=== PATIENT | male | born 1955 | race Caucasian/White ===

== ENCOUNTER → 2017-02-01 | Outpatient (CLI) | payer BC ==
[~2017-02-01] MED LIST: ASP325T; CATHETER FLUSH 10 ML SYR IV PRN; CLOP75TA69 PO; CLPD75T; IOHEXOL 350 MG/ML 150 ML (OMNIPAQUE 350) VIAL IV ONE; METO-351 PO; MTP25TSR; NF-ESOM40C PO; NS 100 ML (IVPB) BAG IV ONE; NTR.4SL; OLME20TA22 PO; OLME20TA5; PANT40TA2 PO; REGADENOSON 0.4 MG/5 ML SYR (LEXISCAN) IV ONE; SIMV40TA2; SIMV40TA4 PO; TRIA1CAP4 PO
[2017-02-01 08:34] LABS: BASOPHILS % (AUTO) 1 % (0-10); EOSINOPHILS # (AUTO) 0.1 10^3/uL (0.0-0.3); EOSINOPHILS % (AUTO) 1 % (0-10); LYMPHOCYTES # (AUTO) 1.4 X 10^3 (1.0-4.0); LYMPHOCYTES % (AUTO) 25 % (12-44); MEAN CORPUSCULAR HEMOGLOBIN 31 PG (25-34); MEAN CORPUSCULAR HGB CONC 35 G/DL (32-36); MEAN CORPUSCULAR VOLUME 88 FL (80-99); MEAN PLATELET VOLUME 11.5 FL (7.4-10.4); MONOCYTES # (AUTO) 0.5 X 10^3 (0.0-1.0); MONOCYTES % (AUTO) 9 % (0-12); NEUTROPHILS # (AUTO) 3.7 X 10^3 (1.8-7.8); NEUTROPHILS % (AUTO) 65 % (42-75); PLATELET COUNT 170 10^3/uL (130-400); RED BLOOD COUNT 4.38 10^6/uL (4.35-5.85); RED CELL DISTRIBUTION WIDTH 13.5 % (10.0-14.5); WHITE BLOOD COUNT 5.7 10^3/uL (4.3-11.0)
[2017-02-01 08:51] LABS: ALANINE AMINOTRANSFERASE 32 U/L (0-55); ALBUMIN 4.1 GM/DL (3.2-4.5); ANION GAP 11 MMOL/L (5-14); ASPARTATE AMINO TRANSFERASE 27 U/L (5-34); BILIRUBIN,TOTAL 0.8 MG/DL (0.1-1.0); BLOOD UREA NITROGEN 16 MG/DL (7-18); BUN/CREATININE RATIO 17; CALCIUM 9.4 MG/DL (8.5-10.1); CARBON DIOXIDE 23 MMOL/L (21-32); CHLORIDE 109 MMOL/L (98-107); CHOLESTEROL 153 MG/DL (< 200); CREATININE SERUM 0.95 MG/DL (0.60-1.30); DIRECT LDL 87 MG/DL (1-129); GFR ESTIMATED > 60; GLUCOSE 95 MG/DL (70-105); MAGNESIUM 2.1 MG/DL (1.8-2.4); POTASSIUM 4.4 MMOL/L (3.6-5.0); SODIUM 143 MMOL/L (135-145); TOTAL PROTEIN 7.4 GM/DL (6.4-8.2); TRIGLYCERIDES 63 MG/DL (<150); VLDL CHOLESTEROL 13 MG/DL (5-40)
[2017-02-01 09:10] LABS: THYROID STIMULATING HORMONE 0.94 UIU/ML (0.35-4.94)
[2017-02-01 09:23] VITALS: BP 139/89
--- NOTE | 2017-02-01 17:53 | Diagnostic Imaging Report ---
PROCEDURE: CT angiography of the chest with contrast. TECHNIQUE: Multiple contiguous axial images were obtained through the chest after uneventful bolus administration of intravenous contrast. Reconstructed CTA MIP acquisitions were also performed. INDICATION: Followup thoracic aortic aneurysm. COMPARISON: 07/11/2015. FINDINGS: The thoracic aortic aneurysm in the ascending segment is stable measuring 4.5 cm without change from 07/11/2015. This is measured on the coronal images perpendicular to the long axis of the mid ascending aorta. The aortic root is 4.3 cm in diameter, near the upper limits of normal. The aortic arch is mildly ectatic proximally, and the descending aorta is normal in size. The pulmonary arteries demonstrate no definite abnormality. The heart size is normal. There is suggestion of a stent in the proximal LAD. There is no mediastinal mass or lymphadenopathy. No hilar significantly enlarged lymph nodes are seen. No axillary lymphadenopathy is identified. The lungs demonstrate minimal dependent atelectatic change. No significant consolidation or mass. The sections of the upper abdomen demonstrate no definite abnormality. The osseous structures demonstrate bridging syndesmophytes in the mid thoracic spine. IMPRESSION: Stable ascending aortic aneurysm measuring at the mid ascending aorta 4.5 cm in caliber. Dictated by: Dictated on workstation # [id number]
--- NOTE | 2017-02-01 22:42 | STRESS TEST ---
DATE OF SERVICE: 02/01/2017 RESTING AND POST REGADENOSON TECHNETIUM 99M TETROFOSMIN SPECT CT IMAGING ORDERING PHYSICIAN: Dr. Mata. PRIMARY CARE PHYSICIAN: Dr. Aaron. CLINICAL DIAGNOSES: Coronary artery disease, hypertension, hyperlipidemia. Baseline images were carried out after injection of 10.09 mCi of technetium-99m tetrofosmin for stress imaging. This was followed by 0.4 mg of adenosine and 30 mCi of technetium-99m tetrofosmin for stress imaging. The electrocardiogram showed sinus rhythm at baseline and did not change significantly with regadenoson infusion. The patient tolerated the procedure well. Review of images at rest and following stress does not indicate any distinct perfusion defects consistent with significant myocardial ischemia or infarction. Gated images show normal global left ventricular systolic function and normal regional wall motion. Left ventricular ejection fraction is calculated to be 48%, but subjectively appears to be somewhat higher than that. Left ventricular end-diastolic volume is 110 mL. TID is absent (1.08). CONCLUSIONS. 1. No evidence of any significant myocardial ischemia or infarction on this study. 2. Normal regional wall motion. 3. Normal global left ventricular systolic function with a calculated ejection fraction of 48% (subjectively somewhat higher than that). Job ID: [id number] DocumentID: [id number] Dictated Date: 02/01/2017 13:03:14 Flight Engineer Helicopter Date: 02/01/2017 13:31:28 Dictated By: LOUISE MATA MD, MA, FACP, FACC,
== END ==
LOC: CARD 07:12
PROVIDERS: ATTEND Internal Medicine Cardiovascular Disease
DX: I71.6 Thoracoabdominal aortic aneurysm, without rupture (principal); I25.10 Atherosclerotic heart disease of native coronary artery without angina pectoris; I10 Essential (primary) hypertension; E78.4 Other hyperlipidemia
CPT/HCPCS: 36415; 71275; 78452; 80053; 80061; 83735; 84443; 85025; 93017

== ENCOUNTER → 2017-03-01 | Outpatient (CLI) | payer BC ==
[~2017-03-01] MED LIST changes: -CATHETER FLUSH 10 ML SYR IV PRN; -IOHEXOL 350 MG/ML 150 ML (OMNIPAQUE 350) VIAL IV ONE; -NS 100 ML (IVPB) BAG IV ONE; -REGADENOSON 0.4 MG/5 ML SYR (LEXISCAN) IV ONE
== END ==
LOC: RAD 12:35
PROVIDERS: ATTEND Internal Medicine Cardiovascular Disease
DX: I25.10 Atherosclerotic heart disease of native coronary artery without angina pectoris (principal); I71.6 Thoracoabdominal aortic aneurysm, without rupture; E78.4 Other hyperlipidemia; I10 Essential (primary) hypertension
CPT/HCPCS: 93923

== ENCOUNTER → 2018-09-12 | Outpatient (CLI) | payer BC ==
[~2018-09-12] MED LIST changes: +HOLD METFORMIN - RECEIVED CONTRAST 20 ML VIAL IV SCH; +IOHEXOL 350 MG/ML 100 ML (OMNIPAQUE 350) VIAL IV ONE; +NS 100 ML (IVPB) BAG IV ONE; +OLME20TA21 PO; -OLME20TA22 PO
[2018-09-12 12:53] LABS: CALCIUM 9.5 MG/DL (8.5-10.1); CREATININE SERUM 1.25 MG/DL (0.60-1.30); POTASSIUM 3.9 MMOL/L (3.6-5.0)
--- NOTE | 2018-09-12 14:13 | Diagnostic Imaging Report ---
PROCEDURE: CT angiography of the chest with contrast. TECHNIQUE: Multiple contiguous axial images were obtained through the chest after uneventful bolus administration of intravenous contrast. 2D reconstructed CTA MIP acquisitions were also performed. Auto Exposure Controls were utilized during the CT exam to meet ALARA standards for radiation dose reduction. INDICATION: Aortic root enlargement. COMPARISON: Comparison is made with prior examination 02/01/2017. FINDINGS: The ascending aorta measures 4.8 cm. There is no evidence of dissection. There are no filling defects within the pulmonary artery to suggest pulmonary embolism. There is extensive coronary artery calcification. There is no pathologically enlarged adenopathy in the chest. There is no pleural or pericardial fluid. There is no pneumothorax. There are no discrete pulmonary nodules, masses, or infiltrates. The visualized intra-abdominal structures are unremarkable. There is moderate thoracic spondylosis. IMPRESSION: The ascending aorta now measures 4.8 cm AP compared to previous measurement of 4.5 cm. Extensive coronary artery calcification. Otherwise, unremarkable CTA chest. Dictated by: Dictated on workstation # [id number]
== END ==
LOC: RAD 12:19
PROVIDERS: ATTEND Nurse Practitioner Family
DX: I25.10 Atherosclerotic heart disease of native coronary artery without angina pectoris (principal); I77.89 Other specified disorders of arteries and arterioles
CPT/HCPCS: 36415; 71275; 80048

== ENCOUNTER → 2019-05-14 | Outpatient (CLI) | payer BC ==
[~2019-05-14] MED LIST changes: +CATHETER FLUSH 10 ML SYR IV PRN; -HOLD METFORMIN - RECEIVED CONTRAST 20 ML VIAL IV SCH; -IOHEXOL 350 MG/ML 100 ML (OMNIPAQUE 350) VIAL IV ONE; -NS 100 ML (IVPB) BAG IV ONE; +SIMV40TA25 PO; -SIMV40TA4 PO
--- NOTE | 2019-05-14 17:59 | Diagnostic Imaging Report ---
Hepatobiliary scan with ejection fraction INDICATION: Abdominal pain This study was performed following administration of 5.42 mCi of Choletec and 8 ounces of Ensure for the ejection fraction calculation. There are no prior nuclear medicine hepatobiliary scans available for comparison. There are no previous ultrasound examinations either. The CTA chest exam of 09/12/2018 failed to show any abnormality of the gallbladder. On this study, there is uptake of the radiotracer by the gallbladder for 30 minutes. This would weigh against the diagnosis of acute cholecystitis. There is also extension of the radiotracer into the small bowel indicating that the common bile duct is not obstructed. The ejection fraction however is only 11% (normal greater than 35%). The reason for the diminished ejection fraction is not certain. The possibility of biliary dyskinesia should be considered. IMPRESSION: 1. There is no evidence for acute cholecystitis or for obstruction of the common bile duct. 2. The ejection fraction is only 11% however and below normal limits. Dictated by: Dictated on workstation # [id number]
== END ==
LOC: CARD 10:26
PROVIDERS: ATTEND Registered Nurse
DX: E80.6 Other disorders of bilirubin metabolism (principal); R10.13 Epigastric pain; R11.2 Nausea with vomiting, unspecified
CPT/HCPCS: 78227

== ENCOUNTER → 2019-05-18 | Outpatient (CLI) | payer BC ==
[~2019-05-18] MED LIST changes: -CATHETER FLUSH 10 ML SYR IV PRN; +HOLD METFORMIN - RECEIVED CONTRAST 20 ML VIAL IV SCH; +IOHEXOL 350 MG/ML 100 ML (OMNIPAQUE 350) VIAL IV ONE; +NS 100 ML (IVPB) BAG IV ONE
[2019-05-18 08:24] LABS: BUN/CREATININE RATIO 12; CREATININE SERUM 1.14 MG/DL (0.60-1.30); GFR ESTIMATED > 60
--- NOTE | 2019-05-18 09:08 | Diagnostic Imaging Report ---
Clinical indication: Patient with syncope and coronary artery disease. Exam: Axial CT scan of the brain without and with 80 cc of Omnipaque 350 IV contrast with coronal and sagittal reformatted images. Auto Exposure Controls were utilized during the CT exam to meet ALARA standards for radiation dose reduction. Comparison: None. Findings: There is no evidence of acute cerebral infarct, intracranial hemorrhage, or gross mass effect. There is no abnormal IV contrast enhancement. The brain parenchymal volume appears appropriate for patient's age. There are subtle focal areas of low attenuation white matter changes involving both cerebral hemispheres, likely representing chronic small vessel ischemic disease. There is normal villa-white matter distinction. There is no significant midline shift or herniation. The [place] vascular structures show no gross abnormality as visualized. The pituitary gland, sella, and suprasellar regions are unremarkable as visualized. There is no evidence of hydrocephalus. The basal cisterns are unremarkable. The skull, extracranial soft tissue, and orbits are unremarkable. The paranasal sinuses are unremarkable. Temporal bones show no significant abnormality. Impression: Unremarkable CT scan of the brain for age. Dictated by: Dictated on workstation # [id number]
== END ==
LOC: CARD 07:55
PROVIDERS: ATTEND Internal Medicine Cardiovascular Disease
DX: I25.10 Atherosclerotic heart disease of native coronary artery without angina pectoris (principal); I65.23 Occlusion and stenosis of bilateral carotid arteries; I10 Essential (primary) hypertension; E78.5 Hyperlipidemia, unspecified
CPT/HCPCS: 36415; 70470; 82565; 84520; 93225; 93226

== ENCOUNTER → 2019-05-22 | Outpatient (CLI) | payer BC ==
[~2019-05-22] VITALS: Ht 187 cm; Wt 112.0 kg
[~2019-05-22] MED LIST changes: -HOLD METFORMIN - RECEIVED CONTRAST 20 ML VIAL IV SCH; -IOHEXOL 350 MG/ML 100 ML (OMNIPAQUE 350) VIAL IV ONE; -NS 100 ML (IVPB) BAG IV ONE; +REGADENOSON 0.4 MG/5 ML SYR (LEXISCAN) IV ONE
[2019-05-22] MEDS: CATHETER FLUSH 10 ML SYR IV PRN ×2 (07:12→09:15)
[2019-05-22 09:14] VITALS: BP 112/68
--- NOTE | 2019-05-22 18:34 | STRESS TEST ---
DATE OF SERVICE: 05/22/2019 RESTING AND POST REGADENOSON TECHNETIUM-99M TETROFOSMIN SPECT CT IMAGING ORDERING PHYSICIAN: BENI Bautista CLINICAL DIAGNOSES: Coronary artery disease, hypertension, hyperlipidemia. Baseline images were carried out after injection of 10.95 mCi of technetium-99m Tetrofosmin. This was followed by 0.4 mg regadenoson and 27.1 mCi of technetium-99m Tetrofosmin for stress imaging. The electrocardiogram showed sinus rhythm at baseline. It did not change significantly with regadenoson infusion. Review of images at rest and following stress does not indicate any significant perfusion defects consistent with myocardial ischemia or infarction. Gated images show normal global left ventricular systolic function with normal regional wall motion. Left ventricular ejection fraction is calculated to be 60%. Left ventricular end diastolic volume is 110 mL. TID is absent (0.89). CONCLUSIONS: 1. No evidence of any significant myocardial ischemia or infarction on this study. 2. Normal regional wall motion. 3. Normal global left ventricular systolic function with a calculated ejection fraction of 60%. Job ID: [id number] DocumentID: [id number] Dictated Date: 05/22/2019 16:18:59 Special Agent In Charge Date: 05/22/2019 18:33:55 Dictated By: LOUISE STRINGER MD, MA, FACP, FACC,
== END ==
LOC: CARD 06:39
PROVIDERS: ATTEND Nurse Practitioner Family
DX: I25.10 Atherosclerotic heart disease of native coronary artery without angina pectoris (principal); I77.89 Other specified disorders of arteries and arterioles; E78.5 Hyperlipidemia, unspecified; I10 Essential (primary) hypertension; R55 Syncope and collapse
CPT/HCPCS: 78452; 93017

== ENCOUNTER → 2020-02-28 | Outpatient (CLI) | payer BC ==
[~2020-02-28] MED LIST changes: +CATHETER FLUSH 10 ML SYR IV PRN; +HOLD METFORMIN - RECEIVED CONTRAST 20 ML VIAL IV SCH; +IOHEXOL 350 MG/ML 100 ML (OMNIPAQUE 350) VIAL IV ONE; +NS 100 ML (IVPB) BAG IV ONE; -REGADENOSON 0.4 MG/5 ML SYR (LEXISCAN) IV ONE
[2020-02-28 08:29] LABS: BUN/CREATININE RATIO 19; CREATININE SERUM 1.17 MG/DL (0.60-1.30); GFR ESTIMATED > 60
--- NOTE | 2020-02-28 09:49 | Diagnostic Imaging Report ---
PROCEDURE: CT angiography of the chest with contrast. TECHNIQUE: Multiple contiguous axial images were obtained through the chest after uneventful bolus administration of intravenous contrast. 3D reconstructed CTA MIP acquisitions were also performed. Auto Exposure Controls were utilized during the CT exam to meet ALARA standards for radiation dose reduction. INDICATION: Thoracic aortic aneurysm. Correlation is made with prior CT from 09/12/2018. FINDINGS: The ascending thoracic aorta measures 4.5 cm AP diameter compared with 4.8 cm on prior exam. The aortic arch and descending thoracic aorta are normal caliber. No dissection is identified. No pericardial or pleural fluid is detected. No axillary lymphadenopathy is identified. No hilar or mediastinal lymphadenopathy is detected. Parenchymal evaluation does show minimal subsegmental atelectasis or scarring in the left lower lobe. Otherwise lungs are clear. No nodule or mass is identified. The upper abdomen is unremarkable. IMPRESSION: 1. Stable ascending thoracic aorta when compared with exam from 09/12/2018. No dissection is identified. 2. Minimal left basilar atelectasis/scarring. Dictated by: Dictated on workstation # [id number]
== END ==
LOC: CARD 09:15
PROVIDERS: ATTEND Internal Medicine Cardiovascular Disease
DX: I71.2 Thoracic aortic aneurysm, without rupture (principal)
CPT/HCPCS: 36415; 71275; 82565; 84520; 93306

== ENCOUNTER → 2021-05-12 | Outpatient (CLI) | payer BC ==
[~2021-05-12] MED LIST changes: -CATHETER FLUSH 10 ML SYR IV PRN; +REGADENOSON 0.4 MG/5 ML SYR (LEXISCAN) IV ONE
[2021-05-12] MEDS: CATHETER FLUSH 10 ML SYR IVP PRN ×2 (07:28→08:17)
[2021-05-12 07:52] LABS: CREATININE SERUM 1.22 MG/DL (0.60-1.30)
--- NOTE | 2021-05-12 08:57 | Diagnostic Imaging Report ---
PROCEDURE: CT angiography of the chest with contrast. TECHNIQUE: Multiple contiguous axial images were obtained through the chest after uneventful bolus administration of intravenous contrast. 3D reconstructed CTA MIP acquisitions were also performed. Auto Exposure Controls were utilized during the CT exam to meet ALARA standards for radiation dose reduction. INDICATION: Thoracic aortic aneurysm COMPARISON: 02/28/2020 and 09/12/2018 FINDINGS: No significant adenopathy within the chest. Aneurysmal dilatation of the ascending thoracic aorta is again identified. This measures up to 4.7 cm in maximal dimension, which is unchanged since at least 2019. The aortic arch measures 2.9 cm while the descending thoracic aorta measures 3.0 cm. No aortic dissection. Advanced calcifications versus stents within the coronary arteries. No significant pericardial effusion. No pleural effusion. The trachea is patent. No pneumothorax. Calcified granuloma within the left upper lobe. Minimal bibasilar scarring and/or atelectasis. Tiny hiatal hernia. Cholecystectomy. Right renal hypodensity is present, which is indeterminate with Hounsfield units of less than 20. Scattered osseous degenerative changes without acute osseous abnormality. IMPRESSION: Stable aneurysmal dilatation of the ascending thoracic aorta measuring up to 4.7 cm, not significantly changed when comparing back to at least 2019. Indeterminate right renal hypodensity. Statistically this likely relates to a cyst, though renal ultrasound would help to confirm. Advanced coronary artery calcifications versus stent grafts. Additional stable findings as above. Dictated by: Dictated on workstation # [id number]
[2021-05-12 09:32] VITALS: BP 122/72
--- NOTE | 2021-05-12 20:41 | STRESS TEST ---
DATE OF SERVICE: 05/12/2021 RESTING AND POST REGADENOSON TECHNETIUM-99M TETROFOSMIN SPECT CT IMAGING ORDERING PHYSICIAN: Tiera New APRN CLINICAL DIAGNOSIS: Coronary artery disease. Baseline images were carried out after injection of 10.94 mCi of technetium-99m Tetrofosmin. This was followed by 0.4 mg regadenoson and 32.3 mCi of technetium-99m Tetrofosmin for stress imaging. The electrocardiogram showed sinus rhythm at baseline. It did not change significantly with the regadenoson infusion. The patient tolerated the procedure well. Review of images at rest and following stress does not indicate any distinct perfusion defects consistent with significant myocardial ischemia or infarction. Diaphragmatic attenuation is seen both at rest and following regadenoson infusion. Gated images show normal global left ventricular systolic function with normal regional wall motion, including the diaphragmatic wall of the left ventricle. Left ventricular ejection fraction is calculated to be 68% and left ventricular end diastolic volume is 102 mL. CONCLUSIONS: 1. No evidence of significant myocardial ischemia or infarction on this study. 2. Normal regional wall motion. 3. Normal global left ventricular systolic function with a calculated ejection fraction of 68%. Job ID: [id number] DocumentID: [id number] Dictated Date: 05/12/2021 16:36:02 Investor Relations Analyst Date: 05/12/2021 20:39:58 Dictated By: LOUISE STRINGER MD, MA, FACP, FACC,
== END ==
LOC: CARD 07:45
PROVIDERS: ATTEND Nurse Practitioner Family
DX: I71.2 Thoracic aortic aneurysm, without rupture (principal); I25.10 Atherosclerotic heart disease of native coronary artery without angina pectoris
CPT/HCPCS: 71275; 78452; 82565; 84520; 93017; A9502; 36415